=== PATIENT | male | born 1970 | race Caucasian/White ===

== ENCOUNTER 2019-02-18 17:38 | Emergency (ER) | payer BC ==
--- NOTE | 2019-02-18 17:52 | Emergency Department Record ---
History of Present Illness - General Chief Complaint: Confusion Stated Complaint: CONFUSED Time Seen by Provider: 02/18/19 17:40 Source: Patient Mode of Arrival: Ambulatory Limitations: No limitations - History of Present Illness Initial Comments: 48 yo male presents from work not feeling well. He got weak, shaky, and felt confused or trouble concentrating. He is a diabetic and thought his sugar might be low. He has not seen a PCP in several years and he does not check his glucose at home. On arrival he is not confused but feels "foggy". His accu check is 54. He is on insulin. No other changes in his health recently. No significant weight gain or loss. He woke up normally and went to work in town feeling normal. He was not exposed to extreme heat. He has been a diabetic since the age of 10. He reports he had a light lunch today. MD Complaint: Other -: Hour(s) Severity: Moderate Consistency: Intermittent Context: Other (He is a diabetic) Associated Symptoms: Malaise, Weakness - Rachel Coma Scale Eye Response: (4) Open spontaneously Motor Response: (6) Obeys commands Verbal Response: (5) Oriented [place] Total: 15 - Related Data Home Medications Medication Instructions Recorded Confirmed Last Taken Aspirin [Aspir-Low] 81 mg PO DAILY 02/18/19 02/18/19 02/18/19 Insulin Regular, Human [Novolin R] 15 unit SQ [facility] 02/18/19 02/18/19 02/17/19 NPH, Human Insulin N [Novolin N] 15 unit SQ [facility] 02/18/19 02/18/19 02/17/19 NPH, Human Insulin N [Novolin N] 25 units SQ [facility] 02/18/19 02/18/19 02/18/19 Allergies Allergy/AdvReac Type Severity Reaction Status Date / Time Penicillins Allergy PT UNSURE Verified 02/18/19 18:00 OF REACTION Review of Systems Constitutional: Reports: Malaise, Weakness. Denies: Chills, Fever Eyes: Denies: Eye discharge, Eye pain, Photophobia, Vision change ENT: Denies: Congestion, Throat pain Respiratory: Denies: Cough, Dyspnea Cardiovascular: Denies: Chest pain, Syncope Endocrine: Reports: Fatigue. Denies: Polydipsia, Polyuria Gastrointestinal: Denies: Abdominal pain, Diarrhea, Nausea, Vomiting Genitourinary: Denies: Dysuria, Hematuria Musculoskeletal: Denies: Arthralgia, Myalgia Skin: Denies: Bruising, Change in color, Rash Neurological: Reports: Confusion (trouble concentrating), Weakness Psychiatric: Reports: Anxiety Hematological/Lymphatic: Denies: Easy bleeding, Easy bruising Physical Exam - General General Appearance: Alert, Oriented x3, Cooperative, No acute distress, Other (No confusion, conversational, fully oriented) Limitations: No limitations - Head Head exam: Atraumatic, Normal inspection - Eye Eye exam: Normal appearance, PERRL. negative: Conjunctival injection, Scleral icterus - ENT ENT exam: Normal exam, Mucous membranes moist Ear exam: Normal external inspection Nasal Exam: Normal inspection Mouth exam: Normal external inspection - Neck Neck exam: Normal inspection - Respiratory Respiratory exam: Normal lung sounds bilaterally. negative: Respiratory distress - Cardiovascular Cardiovascular Exam: Regular rate, Normal rhythm, Normal heart sounds - GI/Abdominal GI/Abdominal exam: Soft. negative: Tenderness - Rectal Rectal exam: Deferred - exam: Deferred - Extremities Extremities exam: Normal inspection. negative: Tenderness - Back Back exam: Denies: CVA tenderness (R), CVA tenderness (L) - Neurological Neurological exam: Alert, CN II-XII intact, Normal gait, Oriented X3. negative: Altered - Psychiatric Psychiatric exam: Normal affect, Normal mood. negative: Agitated, Anxious - Skin Skin exam: Dry, Intact, Normal color, Warm Course - Reevaluation(s) Reevaluation #1: The patient was seen on arrival. He is in no distress, calm, cooperative, fully oriented without confusion Accu check was 54 [place] juice was given and he quickly subjectively felt better Labs and IV ordered 02/18/19 17:52 02/18/19 18:42 The CMP was reviewed No significant abnormalities The A1C is 7.7 The patient remains at his baseline doing very well eating his meal. An Rx for a glucometer was provided. A list of PCP's was also provided. 02/18/19 18:53 The glucose of recheck is 201. He remains asymptomatic at baseline 02/18/19 19:02 The patient continues to do well. He lives in a duplex with his sister with good support. He has a ride from the ED. I recommended he does not drive tonight. We discussed holding his insulin tonight or decrease to 1/2 dose with a snack at bedtime, getting a glucometer, and calling for a new PCP. No signs of symptomatic hypoglycemia in the ED other than feeling a little jittery on arrival that immediately resolved with OJ. He is stable for discharge. 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 We discussed getting a PCP to recheck the BP as well for usp control. 02/18/19 19:05 02/18/19 19:08 Medical Decision Making - Lab Data Result diagrams: 02/18/19 18:10 02/18/19 18:10 Disposition Disposition: Discharge Clinical Impression: Hypoglycemia Disposition: Home, Self-Care Condition: (1) Good Instructions: Hypoglycemia in a Person with Diabetes (ED) Additional Instructions: Hold your evening dose of insulin Fill the prescription for a glucometer and test strips Call the numbers provided for a family doctor Do not skip meals Check your sugar at least three times daily to avoid highs and lows of blood sugar Forms: Patient Portal Access Time of Disposition: 19:06 Quality - Quality Measures Quality Measures: N/A - Blood Pressure Screening Does Patient Have Any of the Following: No Blood Pressure Classification: Hypertensive Reading Systolic Measurement: 153 Diastolic Measurement: 115 Screening for High Blood Pressure: < Pre-Hypertensive BP, F/U Documented > [G8950] Pre-Hypertensive Follow-up Interventions: Referral to alternative/primary care provider.
[2019-02-18 18:18] LABS: ABSOLUTE NEUTROPHIL COUNT 5.97; BASO % 0.9 % (0-6); EOS % 0.9 % (0-6); GRAN % 72.9 % (47-80); HEMOGLOBIN 15.1 gm/dl (14.0-18.0); LYMPH % 18.4 % (16-45); MEAN CELL VOLUME 80.6 fl (81-97); MEAN CORPUSCULAR HEMOGLOBIN 27.1 pg (27-33); MEAN CORPUSCULAR HGB CONC 33.6 g/dl (32-36); MEAN PLATELET VOLUME 9.7 fl (7.4-10.4); MONO % 6.9 % (0-9); PLATELET COUNT 345 K/uL (130-400); RED BLOOD COUNT 5.58 M/uL (4.40-5.70); RED CELL DISTRIBUTION WIDTH 13.7 % (11.5-14.5); WHITE BLOOD COUNT W/O DIFF 8.2 K/uL (4.2-12.2)
[2019-02-18 18:27] LABS: BLOOD UREA NITROGEN 14 mg/dL (6-20); CREATININE 0.7 mg/dL (0.7-1.2); EST GLOMERULAR FILTRATION RATE > 60 mL/min; TOTAL PROTEIN 7.5 g/dL (6.6-8.7)
[2019-02-18 18:29] LABS: GLUCOSE,RANDOM 70 mg/dL (74-109)
[2019-02-18 18:32] LABS: ALB/GLOB RATIO 1.4 (1.1-1.8); ALBUMIN 4.4 g/dL (4.0-5.0); ALKALINE PHOSPHATASE 81 U/L (40-129); ALT/SGPT 27 U/L (<41); AST/SGOT 29 U/L (10.0-50.0)
[2019-02-18 18:43] LABS: THYROID STIMULATING HORMONE 2.04 uIU/mL (0.270-4.20)
== END 2019-02-18 19:12 | disposition home or self-care (01) ==
LOC: ER 17:38
DX: E10.649 Type 1 diabetes mellitus with hypoglycemia without coma (principal); R41.0 Disorientation, unspecified; R53.1 Weakness; R53.81 Other malaise; I10 Essential (primary) hypertension; Z79.4 Long term (current) use of insulin
CPT/HCPCS: 36416; 80053; 82948; 83036; 84443; 85025; 99283; 99284